=== PATIENT | male | born 1940 | race Caucasian/White ===

== ENCOUNTER 2018-09-10 22:17 | Inpatient (IN) | payer MEDICARE, BC ==
[2018-09-11] MEDS ORDERED: Ondansetron ODT 4 MG TAB SL PRN (01:44)
[2018-09-11] MEDS ORDERED: Ondansetron PF 4 MG/2 ML Vial IVP PRN (01:44)
[2018-09-11] MEDS ORDERED: Acetaminophen 325 MG TAB PO PRN (01:44)
[2018-09-11] MEDS: Sodium Chloride 0.9% 1,000 ML IV SCH ×2 (02:08→09:25)
[2018-09-11 02:32] VITALS: BMI 40.8
[2018-09-11] MEDS ORDERED: Calcium Carbonate 500 MG ChewTAB PO PRN ×2 (02:47→12:30)
[2018-09-11] MEDS ORDERED: Senokot S 8.6-50 MG TAB PO PRN ×2 (02:47→12:30)
[2018-09-11] MEDS ORDERED: Bisacodyl 5 MG TAB PO PRN (02:47)
[2018-09-11 03:53] LABS: #Lymphocytes 1.2 thou/uL (1.20-3.40); #Monocytes 1.2 thou/uL (0.11-0.59); #Neutrophils 14.4 thou/uL (1.40-6.50); %Basophils 0.2 % (0.0-1.0); %Lymphocytes 6.9 % (21.0-51.0); %Monocytes 7.1 % (0.0-10.0); %Neutrophils 85.8 % (42.0-75.0); Hemoglobin 13.9 g/dL (14.0-18.0); Mean Corpuscular HGB CONC 33.8 g/dL (32.0-36.0); Mean Corpuscular Hemoglobin 29.3 pg (27.0-31.0); Mean Corpuscular Volume 86.7 fL (78.0-98.0); Mean Platelet Volume 7.5 fL (7.4-10.4); Platelet Count 138 thou/uL (130-400); RBC Distribution Width 12.1 % (11.5-14.5); Red Blood Cell (RBC) Count 4.76 mill/uL (4.70-6.10); White Blood Cell (WBC) Count 16.8 thou/uL (4.8-10.8)
[2018-09-11 04:15] LABS: Anion Gap 12 mmol/L (10-20); BUN (Urea Nitrogen) 17 mg/dL (8.4-25.7); Calc. Creatinine Clearance 147 mL/min (70-130); Calcium 8.6 mg/dL (7.8-10.44); Carbon Dioxide 21 mmol/L (23-31); Chloride 106 mmol/L (98-107); Estimated GFR-MDRD Greater than 90; Glucose 145 mg/dL (83-110); Potassium 3.8 mmol/L (3.5-5.1); Sodium 135 mmol/L (136-145)
--- NOTE | 2018-09-11 08:32 | HP ---
CHIEF COMPLAINT: Burning with urination and increase in frequency. HISTORY OF PRESENT ILLNESS: This is a 78-year-old male with past medical history of atrial fibrillation, hyperlipidemia, who is presenting to our hospital with a chief complaint of dysuria, hesitancy, and increase in frequency, which started on the day prior to the hospital stay. Per the patient, he has been having some discomfort with urination, and now, he has noted that he goes to bathroom a lot more often and he is also having some suprapubic pain, which started the day prior to the admission. The patient stated that he went to [facility] and was admitted at [facility] and they found that he has infection in the urine. Therefore, he has been transferred to our hospital to be further evaluated and to be treated. At this point, the patient endorses some mild discomfort with urination. The patient stated that the pain that he is experiencing is about 2/10, and he is also having some increased frequency with urination. Otherwise, the patient denies any fever, chills, nausea, vomiting, headaches, dizziness, chest pain, palpitations, hematuria, hematochezia, or melena. REVIEW OF SYSTEMS: Positive for dysuria, increasing frequency with urination and suprapubic pain. Otherwise as documented in the HPI. All other system has been reviewed and are negative. PAST MEDICAL HISTORY: The patient had prostatitis, AFib, hyperlipidemia. FAMILY HISTORY: Reviewed and noncontributory to this visit. PAST SURGICAL HISTORY: Ablation and back surgery. PSYCHIATRIC HISTORY: No previous psych history. SOCIAL HISTORY: The patient drinks every day and the patient denies any illicit drug use, and the patient denies any smoking history. ALLERGIES: NO KNOWN DRUG ALLERGIES. CURRENT MEDICATIONS: The patient takes atorvastatin 40 mg and aspirin 81 mg. PHYSICAL EXAMINATION: VITAL SIGNS: The patient's blood pressure is 141/79, pulse of 80, respiratory rate of 23, temperature is 101.0. GENERAL: The patient is alert, awake, and oriented x3, not in acute distress. The patient is lying in bed comfortably. The patient is able to speak to me in full sentences. HEENT: Normocephalic, atraumatic. Pupils are equally round and reactive to light. Extraocular movements are intact. No scleral icterus. No conjunctival pallor. Mouth, mucous membranes are moist. NECK: Trachea is midline. Full range of motion. No JVD. Supple. LUNGS: Clear to auscultation bilaterally. No wheezing, no rales, no rhonchi appreciated. CARDIAC: Positive S1 and S2. Regular rate and rhythm. No murmurs, no gallops, no rubs appreciated. ABDOMEN: Soft, nontender, and nondistended. Positive bowel sounds in all quadrants. EXTREMITIES: 5/5 upper extremity strength, 5/5 lower extremity strength. Good pulses bilaterally of the upper and lower extremities. No edema noted. NEUROLOGIC: Cranial nerves 2 through 12 grossly intact. No neurologic deficits noted. SKIN: Warm, dry, and intact. LABORATORY DATA: WBC is 16.8, hemoglobin is 13.9, hematocrit is 41.3, platelet is 138. Sodium is 135, potassium is 3.8, chloride is 106, carbon dioxide of 21, anion gap of 12, BUN is 17, creatinine is 0.77, glucose is 145. Urinalysis that was done at [facility] was positive for UTI. ASSESSMENT AND PLAN: This is a 78-year-old male being admitted from [facility] ED for, 1. Pyelonephritis. At this point, the patient has been started on antibiotics. We are going to continue the patient on antibiotics. We are going to continue IV fluids. We have admitted the patient to medical floor. We will continue to monitor the patient. We will give p.r.n. pain medications and medications for fever. We will follow up on urine cultures so that we can tailor the antibiotics based on the culture and sensitivity. 2. Hyperlipidemia. We will continue the patient on his home medications. 3. History of atrial fibrillation. Currently, the patient is on aspirin 81 mg. The patient is not on full anticoagulation. 4. Deep vein thrombosis/gastrointestinal prophylaxis. Job ID: [id number]
[2018-09-11] MEDS: Famotidine 20 MG TAB PO SCH ×2 (09:25→19:51)
[2018-09-11] MEDS: Famotidine/PF 20 mg/2ml Vial SLOW IVP SCH ×2 (09:30→20:09)
[2018-09-11] MEDS ORDERED: Sodium Chloride 0.65% Nasal 44 ML BOT EA NARE PRN (12:30)
[2018-09-11] MEDS ORDERED: Diabetic Tussin 200 MG/10 ML UDCUP PO PRN (12:30)
[2018-09-11] MEDS ORDERED: Nitroglycerin 0.4 MG TAB (25 Tab Bottle) SL PRN (12:30)
[2018-09-11] MEDS ORDERED: Cepastat Lozenges 1 LOZ PO PRN (12:30)
[2018-09-11] MEDS: Lactated Ringer's 1,000 ML IV SCH (13:17)
--- NOTE | 2018-09-11 13:44 | PDOC.PN ---
- Subjective Encounter Start Date: 09/11/18 Encounter Start Time: 07:00 Subjective: mild suprapubic pain, still has burning urination but better -: no nausea -: still has freq of urination but better - Objective Resuscitation Status - Order Detail: 09/11/18 02:47 Resuscitation Status Routine Resuscitation Status: FULL: Full Resuscitation MAR Reviewed: Yes Vital Signs & Weight: Vital Signs (12 hours) Temp Pulse Resp BP Pulse Ox 09/11/18 11:42 98.2 F 53 L 18 132/72 98 09/11/18 09:37 99 09/11/18 09:31 63 09/11/18 08:00 98.2 F 53 L 18 133/81 99 09/11/18 01:55 94 L 09/11/18 01:54 98.1 F 68 20 128/65 94 L Weight Weight 284 lb 6.341 oz I&O: 09/10/18 09/11/18 09/12/18 06:59 06:59 06:59 Intake Total 975 Output Total 350 Balance 625 Result Diagrams: 09/11/18 03:30 09/11/18 03:30 Phys Exam - Physical Examination HEENT: PERRLA, moist MMs Neck: no JVD, supple Respiratory: no wheezing, no rales Cardiovascular: RRR, no significant murmur Gastrointestinal: soft, no distention, positive bowel sounds mild tenderness in suprapubic area Musculoskeletal: no edema, pulses present Neurological: non-focal, moves all 4 limbs Psychiatric: normal affect, A&O x 3 Dx/Plan (1) Sepsis Code(s): A41.9 - SEPSIS, UNSPECIFIED ORGANISM Status: Acute Qualifiers: Sepsis type: sepsis due to unspecified organism Qualified Code(s): A41.9 - Sepsis, unspecified organism (2) UTI (urinary tract infection) Status: Acute Qualifiers: Urinary tract infection type: acute cystitis Hematuria presence: without hematuria Qualified Code(s): N30.00 - Acute cystitis without hematuria (3) Obesity Code(s): E66.9 - OBESITY, UNSPECIFIED Status: Chronic (4) Dyslipidemia Code(s): E78.5 - HYPERLIPIDEMIA, UNSPECIFIED Status: Chronic - Plan is on ceftriaxone -: iv hydration -: ct stone protocol to r/o obstruction -: has prior h/o prostatitis years ago -: to amb as tolerated * . Review of Systems - Medications/Allergies Allergies/Adverse Reactions: Allergies Allergy/AdvReac Type Severity Reaction Status Date / Time No Known Allergies Allergy Unverified 09/11/18 01:44 Medications: Current Medications Acetaminophen (Tylenol) 1,000 mg PO Q6H PRN PRN Reason: Mild Pain (1-3) Bisacodyl (Dulcolax) 10 mg PO DAILYPRN PRN PRN Reason: Constipation Calcium Carbonate (Tums) 1,000 mg PO Q4H PRN PRN Reason: Heartburn or Indigestion Famotidine (Pepcid) 20 mg SLOW IVP Q12HR [facility] Last Admin: 09/11/18 09:30 Dose: Not Given Famotidine (Pepcid) 20 mg PO BID [facility] Last Admin: 09/11/18 09:25 Dose: 20 mg Guaifenesin (Robitussin Sf) 200 mg PO Q4H PRN PRN Reason: Cough Ceftriaxone Sodium 2 gm/ (Sodium Chloride) 100 mls @ 200 mls/hr IVPB Q24HR [facility] Lactated Ringer's (Lactated Ringer's) 1,000 mls @ 75 mls/hr IV .[id number] [facility] Last Admin: 09/11/18 13:17 Dose: 1,000 mls Miscellaneous Medication (Pharmacy To Dose) 1 each IVPB PRN PRN PRN Reason: Pharmacy to dose Nitroglycerin (Nitrostat) 0.4 mg SL Q5MIN PRN PRN Reason: Chest Pain Senna/Docusate Sodium (Senokot S) 2 tab PO BID PRN PRN Reason: Constipation Sodium Chloride (Flush - Normal Saline) 10 ml IVF Q12HR [facility] Last Admin: 09/11/18 09:30 Dose: Not Given Sodium Chloride (Flush - Normal Saline) 10 ml IVF PRN PRN PRN Reason: Saline Flush Sodium Chloride ([place] Nasal [place] 0.65%) 0 ml EA NARE QIDPRN PRN PRN Reason: Nasal Congestion Throat Lozenges (Cepastat Lozenges) 1 sirena PO Q2H PRN PRN Reason: Sore Throat
--- NOTE | 2018-09-11 14:43 | CT ---
CT ABDOMEN AND PELVIS NONCONTRAST: History: Obstructive uropathy. Sepsis. UTI. FINDINGS: No comparison. Each renal collecting system, ureter, and urinary bladder are decompressed. A 0.4 cm calculus is evid ent within the nondilated sierra at the inferior pole left kidney. Lack of contrast limits evaluation for other abnormalities. Mild atelectasis at the lung bases. Cysts within the lateral segment left liver lobe. Exophytic cyst projects laterally from the left kidney. Nonspecific stranding within the perirenal fat bilaterally. Calcification is in the arterial structur es. Abdominal fat protrudes into the left inguinal canal. IMPRESSION: 1. Nonobstructing 4 mm left renal calculus. 2. Left inguinal hernia contains only fat. 3. Atherosclerosis. POS: ANCELMO
[2018-09-11] MEDS: Acetaminophen 500 MG TAB PO PRN (15:57)
[2018-09-11] MEDS: cefTRIAXone\\ROCEPHIN 2 GM in Sodium Chloride 0.9% 100 ML IVPB SCH (19:51)
[2018-09-11] MEDS ORDERED: Tamsulosin HCl 0.4 MG CAP PO SCH (21:00)
[2018-09-12] MEDS: Lactated Ringer's 1,000 ML IV SCH ×2 (05:23→16:57)
[2018-09-12 08:09] LABS: #Eosinphils 0.1 thou/uL (0.0-0.7); #Lymphocytes 1.4 thou/uL (1.20-3.40); #Monocytes 0.9 thou/uL (0.11-0.59); #Neutrophils 10.1 thou/uL (1.40-6.50); %Basophils 0.3 % (0.0-1.0); %Eosinophils 0.8 % (0.0-10.0); %Lymphocytes 10.8 % (21.0-51.0); Hemoglobin 13.7 g/dL (14.0-18.0); Mean Corpuscular HGB CONC 32.4 g/dL (32.0-36.0); Mean Corpuscular Hemoglobin 28.7 pg (27.0-31.0); Mean Corpuscular Volume 88.5 fL (78.0-98.0); Mean Platelet Volume 8.3 fL (7.4-10.4); Platelet Count 136 thou/uL (130-400); RBC Distribution Width 12.2 % (11.5-14.5); Red Blood Cell (RBC) Count 4.77 mill/uL (4.70-6.10); White Blood Cell (WBC) Count 12.5 thou/uL (4.8-10.8)
[2018-09-12 08:23] LABS: Anion Gap 11 mmol/L (10-20); BUN (Urea Nitrogen) 16 mg/dL (8.4-25.7); Calc. Creatinine Clearance 138 mL/min (70-130); Calcium 8.6 mg/dL (7.8-10.44); Carbon Dioxide 24 mmol/L (23-31); Chloride 105 mmol/L (98-107); Estimated GFR-MDRD Greater than 90; Glucose 112 mg/dL (83-110); Potassium 3.8 mmol/L (3.5-5.1); Sodium 136 mmol/L (136-145)
[2018-09-12] MEDS: Famotidine/PF 20 mg/2ml Vial SLOW IVP SCH (08:25)
[2018-09-12] MEDS: Famotidine 20 MG TAB PO SCH ×2 (08:28→19:51)
--- NOTE | 2018-09-12 10:03 | PDOC.PN ---
- Subjective Encounter Start Date: 09/12/18 Encounter Start Time: 07:00 Subjective: still has freq and urgency with burning sensation on passing urine -: no fever or chills now -: is amb in room - Objective Resuscitation Status - Order Detail: 09/11/18 02:47 Resuscitation Status Routine Resuscitation Status: FULL: Full Resuscitation MAR Reviewed: Yes Vital Signs & Weight: Vital Signs (12 hours) Temp Pulse Resp BP BP Pulse Ox 09/12/18 07:53 97.4 F L 64 18 153/78 H 92 L 09/12/18 04:35 98.1 F 59 L 16 144/68 H 99 Weight Weight 284 lb 6.341 oz I&O: 09/11/18 09/12/18 09/13/18 06:59 06:59 06:59 Intake Total 975 1800 Output Total 350 395 Balance 625 1405 Result Diagrams: 09/12/18 05:43 09/12/18 05:43 Phys Exam - Physical Examination HEENT: PERRLA, moist MMs Neck: no JVD, supple Respiratory: no wheezing, no rales Cardiovascular: RRR, no significant murmur Gastrointestinal: soft, non-tender, positive bowel sounds Musculoskeletal: no edema, pulses present Neurological: non-focal, moves all 4 limbs Psychiatric: normal affect, A&O x 3 Dx/Plan (1) Sepsis Code(s): A41.9 - SEPSIS, UNSPECIFIED ORGANISM Status: Acute Qualifiers: Sepsis type: sepsis due to unspecified organism Qualified Code(s): A41.9 - Sepsis, unspecified organism (2) UTI (urinary tract infection) Status: Acute Qualifiers: Urinary tract infection type: acute cystitis Hematuria presence: without hematuria Qualified Code(s): N30.00 - Acute cystitis without hematuria (3) Obesity Code(s): E66.9 - OBESITY, UNSPECIFIED Status: Chronic (4) Dyslipidemia Code(s): E78.5 - HYPERLIPIDEMIA, UNSPECIFIED Status: Chronic - Plan obstr uropathy with b/l pyelonephritis -: elevated psa at 14 -: increase flomax to bid, ditropan and azo -: will consult urology -: continue ceftriaxone, asp, lipitor, will add small dose lopressor * . Review of Systems - Medications/Allergies Allergies/Adverse Reactions: Allergies Allergy/AdvReac Type Severity Reaction Status Date / Time No Known Allergies Allergy Unverified 09/11/18 01:44 Medications: Current Medications Acetaminophen (Tylenol) 1,000 mg PO Q6H PRN PRN Reason: Mild Pain (1-3) Last Admin: 09/11/18 15:57 Dose: 1,000 mg Bisacodyl (Dulcolax) 10 mg PO DAILYPRN PRN PRN Reason: Constipation Calcium Carbonate (Tums) 1,000 mg PO Q4H PRN PRN Reason: Heartburn or Indigestion Famotidine (Pepcid) 20 mg SLOW IVP Q12HR [facility] Last Admin: 09/12/18 08:25 Dose: Not Given Famotidine (Pepcid) 20 mg PO BID [facility] Last Admin: 09/12/18 08:28 Dose: 20 mg Guaifenesin (Robitussin Sf) 200 mg PO Q4H PRN PRN Reason: Cough Ceftriaxone Sodium 2 gm/ (Sodium Chloride) 100 mls @ 200 mls/hr IVPB Q24HR [facility] Last Admin: 09/11/18 19:51 Dose: 100 mls Lactated Ringer's (Lactated Ringer's) 1,000 mls @ 75 mls/hr IV .[id number] [facility] Last Admin: 09/12/18 05:23 Dose: 1,000 mls Miscellaneous Medication (Pharmacy To Dose) 1 each IVPB PRN PRN PRN Reason: Pharmacy to dose Nitroglycerin (Nitrostat) 0.4 mg SL Q5MIN PRN PRN Reason: Chest Pain Oxybutynin Chloride (Ditropan) 5 mg PO DAILY [facility] Phenazopyridine HCl (Azo Standard) 97.5 mg PO [facility] Senna/Docusate Sodium (Senokot S) 2 tab PO BID PRN PRN Reason: Constipation Sodium Chloride (Flush - Normal Saline) 10 ml IVF Q12HR [facility] Last Admin: 09/12/18 08:25 Dose: Not Given Sodium Chloride (Flush - Normal Saline) 10 ml IVF PRN PRN PRN Reason: Saline Flush Sodium Chloride ([place] Nasal [place] 0.65%) 0 ml EA NARE QIDPRN PRN PRN Reason: Nasal Congestion Tamsulosin HCl (Flomax) 0.4 mg PO BID [facility] Throat Lozenges (Cepastat Lozenges) 1 sirena PO Q2H PRN PRN Reason: Sore Throat
[2018-09-12] MEDS: Phenazopyridine HCl 97.5 MG TABLET PO SCH ×2 (12:49→17:02)
[2018-09-12] MEDS: Acetaminophen 500 MG TAB PO PRN (17:02)
[2018-09-12] MEDS: Atorvastatin Calcium 40 MG TAB PO SCH (19:51)
[2018-09-12] MEDS: Tamsulosin HCl 0.4 MG CAP PO SCH (19:51)
[2018-09-12] MEDS: cefTRIAXone\\ROCEPHIN 2 GM in Sodium Chloride 0.9% 100 ML IVPB SCH (19:52)
[2018-09-13] MEDS: Lactated Ringer's 1,000 ML IV SCH ×2 (06:23→11:16)
[2018-09-13 08:04] LABS: #Lymphocytes 1.1 thou/uL (1.20-3.40); #Monocytes 0.6 thou/uL (0.11-0.59); #Neutrophils 7.9 thou/uL (1.40-6.50); %Eosinophils 0.3 % (0.0-10.0); %Lymphocytes 11.1 % (21.0-51.0); %Monocytes 5.9 % (0.0-10.0); %Neutrophils 82.6 % (42.0-75.0); Hemoglobin 14.2 g/dL (14.0-18.0); Mean Corpuscular HGB CONC 33.4 g/dL (32.0-36.0); Mean Corpuscular Hemoglobin 29.2 pg (27.0-31.0); Mean Corpuscular Volume 87.4 fL (78.0-98.0); Mean Platelet Volume 7.7 fL (7.4-10.4); Platelet Count 141 thou/uL (130-400); RBC Distribution Width 12.1 % (11.5-14.5); Red Blood Cell (RBC) Count 4.85 mill/uL (4.70-6.10); White Blood Cell (WBC) Count 9.6 thou/uL (4.8-10.8)
[2018-09-13] MEDS: Phenazopyridine HCl 97.5 MG TABLET PO SCH ×3 (08:13→17:42)
[2018-09-13] MEDS: Acetaminophen 500 MG TAB PO PRN ×2 (08:13→19:58)
[2018-09-13] MEDS: Tamsulosin HCl 0.4 MG CAP PO SCH ×2 (08:13→19:57)
[2018-09-13] MEDS: Famotidine 20 MG TAB PO SCH ×2 (08:13→19:58)
[2018-09-13 08:20] LABS: Anion Gap 11 mmol/L (10-20); BUN (Urea Nitrogen) 12 mg/dL (8.4-25.7); Calc. Creatinine Clearance 130 mL/min (70-130); Calcium 8.6 mg/dL (7.8-10.44); Carbon Dioxide 22 mmol/L (23-31); Chloride 104 mmol/L (98-107); Estimated GFR-MDRD 85; Glucose 121 mg/dL (83-110); Potassium 3.9 mmol/L (3.5-5.1); Sodium 133 mmol/L (136-145)
[2018-09-13] MEDS ORDERED: Oxybutynin 5 MG TAB PO SCH (09:00)
--- NOTE | 2018-09-13 11:53 | PDOC.PN ---
- Subjective Encounter Start Date: 09/13/18 Encounter Start Time: 08:15 Subjective: had fever early this am, is sitting in chair -: had waller placed yesterday evening -: he feels better after waller - Objective Resuscitation Status - Order Detail: 09/11/18 02:47 Resuscitation Status Routine Resuscitation Status: FULL: Full Resuscitation MAR Reviewed: Yes Vital Signs & Weight: Vital Signs (12 hours) Temp Pulse Resp BP BP Pulse Ox 09/13/18 11:19 97.7 F 57 L 17 116/73 09/13/18 08:18 95 09/13/18 07:03 100.7 F H 57 L 19 130/60 95 Weight Weight 284 lb 6.341 oz I&O: 09/12/18 09/13/18 09/14/18 06:59 06:59 06:59 Intake Total 1800 Output Total 395 4000 Balance 1405 -4000 Result Diagrams: 09/13/18 07:28 09/13/18 07:28 Phys Exam - Physical Examination HEENT: PERRLA, moist MMs Neck: no JVD, supple Respiratory: no wheezing, no rales Cardiovascular: RRR, no significant murmur Gastrointestinal: soft, non-tender, positive bowel sounds Musculoskeletal: no edema, pulses present Neurological: non-focal, moves all 4 limbs Psychiatric: normal affect, A&O x 3 Dx/Plan (1) Sepsis Code(s): A41.9 - SEPSIS, UNSPECIFIED ORGANISM Status: Acute Qualifiers: Sepsis type: sepsis due to unspecified organism Qualified Code(s): A41.9 - Sepsis, unspecified organism (2) UTI (urinary tract infection) Status: Acute Qualifiers: Urinary tract infection type: acute cystitis Hematuria presence: without hematuria Qualified Code(s): N30.00 - Acute cystitis without hematuria (3) Obesity Code(s): E66.9 - OBESITY, UNSPECIFIED Status: Chronic (4) Dyslipidemia Code(s): E78.5 - HYPERLIPIDEMIA, UNSPECIFIED Status: Chronic (5) Obstructive uropathy Code(s): N13.9 - OBSTRUCTIVE AND REFLUX UROPATHY, UNSPECIFIED Status: Acute Comment: elevated psa at 14 - Plan has indwelling waller now -: on ceftriaxone, sensitive to cultures taken -: flomax bid, azo -: continue asp, lipitor, to amb as tolerated -: dc plan when he is afebrile * . Review of Systems - Medications/Allergies Allergies/Adverse Reactions: Allergies Allergy/AdvReac Type Severity Reaction Status Date / Time No Known Allergies Allergy Unverified 09/11/18 01:44 Medications: Current Medications Acetaminophen (Tylenol) 1,000 mg PO Q6H PRN PRN Reason: Mild Pain (1-3) Last Admin: 09/13/18 08:13 Dose: 1,000 mg Aspirin (Aspirin Chewable) 81 mg PO DAILY [facility] Last Admin: 09/13/18 08:13 Dose: 81 mg Atorvastatin Calcium (Lipitor) 40 mg PO HS [facility] Last Admin: 09/12/18 19:51 Dose: 40 mg Bisacodyl (Dulcolax) 10 mg PO DAILYPRN PRN PRN Reason: Constipation Calcium Carbonate (Tums) 1,000 mg PO Q4H PRN PRN Reason: Heartburn or Indigestion Famotidine (Pepcid) 20 mg PO BID [facility] Last Admin: 09/13/18 08:13 Dose: 20 mg Guaifenesin (Robitussin Sf) 200 mg PO Q4H PRN PRN Reason: Cough Ceftriaxone Sodium 2 gm/ (Sodium Chloride) 100 mls @ 200 mls/hr IVPB Q24HR [facility] Last Admin: 09/12/18 19:52 Dose: 100 mls Lactated Ringer's (Lactated Ringer's) 1,000 mls @ 75 mls/hr IV .[id number] [facility] Last Admin: 09/13/18 11:16 Dose: 1,000 mls Miscellaneous Medication (Pharmacy To Dose) 1 each IVPB PRN PRN PRN Reason: Pharmacy to dose Nitroglycerin (Nitrostat) 0.4 mg SL Q5MIN PRN PRN Reason: Chest Pain Phenazopyridine HCl (Azo Standard) 97.5 mg PO PC [facility] Last Admin: 09/13/18 08:13 Dose: 97.5 mg Senna/Docusate Sodium (Senokot S) 2 tab PO BID PRN PRN Reason: Constipation Sodium Chloride (Flush - Normal Saline) 10 ml IVF Q12HR [facility] Last Admin: 09/13/18 08:14 Dose: Not Given Sodium Chloride (Flush - Normal Saline) 10 ml IVF PRN PRN PRN Reason: Saline Flush Sodium Chloride ([place] Nasal [place] 0.65%) 0 ml EA NARE QIDPRN PRN PRN Reason: Nasal Congestion Tamsulosin HCl (Flomax) 0.4 mg PO BID [facility] Last Admin: 09/13/18 08:13 Dose: 0.4 mg Throat Lozenges (Cepastat Lozenges) 1 sirena PO Q2H PRN PRN Reason: Sore Throat
--- NOTE | 2018-09-13 15:24 | CON ---
DATE OF CONSULTATION: 09/12/2018 REASON FOR CONSULTATION: Consultation was requested for UTI, concern for pyelonephritis and elevated PSA. The patient was admitted with concerns for urinary tract infection and chills. He did not have fever, so I am not fully understanding the diagnosis of pyelonephritis with the need for admission as he was not previously on antibiotics prior to admission. He did not have gross hematuria. He did have burning, frequency, urgency, and worsening urinary symptoms over the past week or so. Normally, he has frequency every 2-3 hours and nocturia x0. He has worsening hesitancy, weakness , and incomplete emptying. Twenty-five years ago, he had prostatitis and was treated and had a urologist then, but he has not had problems with this or infections since. He does not take any prostate medications. He had no hematuria. No history of stones; however, there was concern for stone on recent CT. He was unaware of this. PAST MEDICAL HISTORY: Atrial fibrillation, hyperlipidemia, asbestosis. PAST SURGICAL HISTORY: Cardiac ablation and back surgery. MEDICATIONS: 1. Atorvastatin 40 mg. 2. Aspirin 81 mg. ALLERGIES: NONE. SOCIAL HISTORY: He has on average 2 drinks a day, sometimes more, sometimes not everyday. He does not smoke or use drugs. REVIEW OF SYSTEMS: Reveals some constipation recently, but he does work to stay regular and he had a bowel movement today. No diarrhea. No nausea or vomiting. He has had chills, but no fever. No chest pain. No shortness of breath. No cough. He does admit to Asbestosis but does not use anything for that as it is in early stages. He had a colonoscopy 15 years ago that showed polyps. He was screened for prostate cancer previously and his PSA approximately 5 years ago was 1.8. He has not had a biopsy of concern for cancer. FAMILY HISTORY: Significant for dad at 93 with CVAs, but he did have a history of prostate cancer that was noted when he had a PSA of 42 and was on Lupron, but did not of this, but rather old age and multi-organ failure. Mother at 86. She had female cancer in 1956 and survived that and colon cancer. She thereafter not of cancer. PHYSICAL EXAMINATION: GENERAL: He is lying comfortably in the bed. Alert, oriented, and jovial. VITAL SIGNS: T-max 98.1, saturating well on room air, blood pressure 153/78, heart rate 64, respiratory rate 18. Urine output has been listed as urinal. I had already asked him to do a bladder scan, and if it was greater than 200mL to call me. They did and it was, so I asked the nurse to place an 18-Urdu coude. She did without difficulty and immediately got back more than a liter, and it was still draining when I saw him with clear urine. HEART: Heart rate was fairly regular without any obvious murmurs, gallops, or rubs. LUNGS: Clear to auscultation bilaterally. ABDOMEN: Rotund, but soft, nondistended, nontender. : Testes were descended bilaterally with the right atrophic, which is chronic after he got injury when he was young. 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 Phallus was uncircumcised with the foreskin back, but I reduced it. The Thompson catheter again draining yellow to white urine. EXTREMITIES: No lower extremity edema. HEENT: No scleral icterus or JVD. RECTAL: Digital rectal exam revealed enlarged prostate with right greater than left, but no nodules nor induration and just consistent with BPH. LABORATORY DATA: CBC is within normal limits. BUN and creatinine are 16 and 0.82. PSA 14.59, which does not concern me in the least as he has both infection and obvious retention, so I did not to check PSAs during such episodes. Urinalysis from 09/10/2018, shows too numerous to count rbc's, too numerous to count wbc's, 3+ bacteria, and 0-3 squamous cells. Culture already growing E coli sensitive to most organisms or most antibiotics. CT scan without contrast was revealed and I will further dictate that on the addendum. ASSESSMENT AND PLAN: We have a 78-year-old male with presumed longstanding BPH that led to incomplete emptying and urinary tract infection, now with prostatitis and retention with an indwelling and on antibiotics. I would continue antibiotics for a total of 4 weeks based on the elevated PSA, and then we can repeat that as an outpatient at a later time. I would continue tamsulosin twice a day. Hold off on finasteride for now, but ultimately it is maybe something that is required. His bladder will need rest from overdistention and he will likely need to be discharged with the Thompson catheter and follow up for a voiding trial. Job ID: [id number] MTDD
[2018-09-13] MEDS: Atorvastatin Calcium 40 MG TAB PO SCH (19:58)
[2018-09-13] MEDS: cefTRIAXone\\ROCEPHIN 2 GM in Sodium Chloride 0.9% 100 ML IVPB SCH (19:58)
--- NOTE | 2018-09-14 01:40 | PRG ---
DATE OF SERVICE: 09/13/2018 SUBJECTIVE: The patient did well overnight. He has no complaints. The catheter has been draining fine. OBJECTIVE: He is comfortably sitting in the bed. His catheter is draining yellow urine. His vitals have been stable with T-max now 100.7, but has come down to 99. Blood pressure 130/60, heart rate 60s, and sat'ing 95% on room air. LABORATORY DATA: White count normalized and his creatinine still good. E coli with urine culture and sensitive to everything but amoxicillin. ASSESSMENT AND PLAN: A 78-year-old male with BPH, UTI, prostatitis and retention with catheter draining now well on antibiotic therapy. He can go home on Cipro for four weeks and instructed him on how to take care of the catheter and remove it. He will do this on the day he follows up next week in my office for a voiding trial. I reviewed all of this with him and his family. I've left scripts for both Cipro and tamsulosin. All questions were answered. Job ID: [id number] [facility]
[2018-09-14 05:39] LABS: #Lymphocytes 0.9 thou/uL (1.20-3.40); #Monocytes 0.6 thou/uL (0.11-0.59); #Neutrophils 3.9 thou/uL (1.40-6.50); %Basophils 0.2 % (0.0-1.0); %Eosinophils 0.7 % (0.0-10.0); %Lymphocytes 16.3 % (21.0-51.0); %Monocytes 11.2 % (0.0-10.0); %Neutrophils 71.7 % (42.0-75.0); Hemoglobin 12.4 g/dL (14.0-18.0); Mean Corpuscular HGB CONC 33.5 g/dL (32.0-36.0); Mean Corpuscular Hemoglobin 29.2 pg (27.0-31.0); Mean Platelet Volume 7.2 fL (7.4-10.4); Platelet Count 122 thou/uL (130-400); RBC Distribution Width 12.1 % (11.5-14.5); Red Blood Cell (RBC) Count 4.23 mill/uL (4.70-6.10); White Blood Cell (WBC) Count 5.5 thou/uL (4.8-10.8)
[2018-09-14 06:00] LABS: Anion Gap 11 mmol/L (10-20); BUN (Urea Nitrogen) 13 mg/dL (8.4-25.7); Calc. Creatinine Clearance 139 mL/min (70-130); Calcium 8.4 mg/dL (7.8-10.44); Carbon Dioxide 24 mmol/L (23-31); Chloride 106 mmol/L (98-107); Estimated GFR-MDRD Greater than 90; Glucose 117 mg/dL (83-110); Potassium 3.7 mmol/L (3.5-5.1); Sodium 137 mmol/L (136-145)
[2018-09-14] MEDS: Phenazopyridine HCl 97.5 MG TABLET PO SCH (09:30)
[2018-09-14] MEDS: Tamsulosin HCl 0.4 MG CAP PO SCH (09:30)
[2018-09-14] MEDS: Famotidine 20 MG TAB PO SCH (09:30)
[2018-09-14 11:21] VITALS: BP 139/67; TEMP 98.5
--- NOTE | 2018-09-15 12:17 | DIS ---
DATE OF ADMISSION: 09/10/2018 DATE OF DISCHARGE: 09/14/2018 DISCHARGE DISPOSITION: To home. PRIMARY DISCHARGE DIAGNOSES: Obstructive uropathy with urinary tract infection, sepsis, and bilateral pyelonephritis, elevated PSA of 14, for further evaluation. SECONDARY DISCHARGE DIAGNOSES: Dyslipidemia, obesity. PROCEDURES DONE DURING HOSPITALIZATION: Abdominal pelvic CAT scan done showed nonobstructing 4 mm left renal calculus, left inguinal hernia containing only fat, atherosclerosis, nonspecific stranding within the perirenal fat bilaterally. Urine culture grew E coli, 10,000 to 25,000 colony-forming units per mL, resistant to ampicillin, sulbactam, and amikacin, but sensitive to all other antibiotics. Blood cultures x2, no growth. Had a white count of 20 on the day of admission with discharge numbers of 5.5, H and H on the day of discharge 12 and 36, platelet count 122. PSA 14.5. BUN and creatinine 13 and 0.7 on the day of discharge. UA showed large leukocyte esterase, greater than 50 wbc's, and 3+ bacteria, also had positive nitrite. INPATIENT CONSULT: Janice Gipson MD for Urology. DISCHARGE MEDICATIONS: 1. Aspirin 81 mg p.o. daily. 2. Lipitor 40 mg p.o. at bedtime. 3. Ciprofloxacin 500 mg p.o. twice daily for a period of 4 weeks. 4. Flomax 0.4 mg p.o. twice daily. ALLERGIES: NO KNOWN DRUG ALLERGIES. DISCHARGE PLAN: The patient to follow up with Dr. Gipson in 2 weeks for further workup for obstructive uropathy. BRIEF COURSE DURING HOSPITALIZATION: The patient initially got admitted on the with complaints of fever, chills, burning urination and frequency. The patient was diagnosed with sepsis with UTI. He had elevated white count of 20,000. He also had bandemia. His CT scan done showed findings suggestive of pyelonephritis. No stones were seen. His PSA was 14. He was evaluated by Dr. Janice Gipson for Urology. The patient continued to have burning urination with increased frequency. He had placement of indwelling Thompson catheter for the same as he did not get well with 3 days of antibiotics and adequate fluid resuscitation. The patient has been given instructions how to bladder train and remove his Thompson catheter by Dr. Gipson in a week or so. He needs followup with Dr. Gipson, Urology for further workup for his elevated PSA. He has had prior history of prostatitis in the past, but was more than 10 or 15 years back. He is otherwise hemodynamically stable. His cultures came back positive for E coli, sensitive to quinolones. He needs to continue antibiotics for a total duration of 4 weeks per Urology advice. Please see a [id number] documentation for the day of discharge on [facility]. Job ID: [id number]
== END 2018-09-14 12:27 | disposition home or self-care (01) | DRG 872 ==
LOC: ERS 22:17 → T4-A 22:37
PROVIDERS: ADMIT Internal Medicine; ATTEND Internal Medicine
DX: A41.9 Sepsis, unspecified organism (principal); N30.00 Acute cystitis without hematuria; I48.91 Unspecified atrial fibrillation; E78.5 Hyperlipidemia, unspecified; N41.9 Inflammatory disease of prostate, unspecified; E66.9 Obesity, unspecified; Z68.38 Body mass index [BMI] 38.0-38.9, adult; N13.9 Obstructive and reflux uropathy, unspecified; B96.20 Unspecified Escherichia coli [E. coli] as the cause of diseases classified elsewhere; Z79.82 Long term (current) use of aspirin
CPT/HCPCS: 36415; 74176; 80048; 84153; 85025; 87040; 99284; J0696; J7050; J7120

== ENCOUNTER 2018-11-11 07:22 | Outpatient (CLI) | payer MEDICARE, BC ==
[2018-11-11 13:57] LABS: Hemoglobin 14.6 g/dL (14.0-18.0); Mean Corpuscular HGB CONC 32.4 g/dL (32.0-36.0); Mean Corpuscular Hemoglobin 28.8 pg (27.0-31.0); Mean Corpuscular Volume 88.9 fL (78.0-98.0); Mean Platelet Volume 8.1 fL (7.4-10.4); Platelet Count 145 thou/uL (130-400); RBC Distribution Width 12.4 % (11.5-14.5); Red Blood Cell (RBC) Count 5.05 mill/uL (4.70-6.10)
[2018-11-11 14:14] LABS: Bilirubin Negative (Negative); Blood, Urine Negative (Negative); Clarity CLEAR (Clear); Glucose, Urine (Dipstick) Negative (Negative); Leukocyte Negative (Negative); Nitrite Negative (Negative); Protein, Urine (Dipstick) Negative (Neg-Trace); Urobilinogen 0.2 mg/dL (0.2-1.0); pH, Urine 6.5 (5.0-9.0)
[2018-11-11 14:15] LABS: Anion Gap 13 mmol/L (10-20); BUN (Urea Nitrogen) 17 mg/dL (8.4-25.7); Calc. Creatinine Clearance 0 mL/min (70-130); Calcium 9.6 mg/dL (7.8-10.44); Carbon Dioxide 22 mmol/L (23-31); Chloride 107 mmol/L (98-107); Estimated GFR-MDRD Greater than 90; Glucose 86 mg/dL (83-110); Potassium 4.3 mmol/L (3.5-5.1); Sodium 138 mmol/L (136-145)
[2018-11-11 14:19] LABS: Bacteria/HPF None Seen HPF (None Seen); Hyaline Casts/LPF 0-3 HYALINE CAST LPF (0-3 Hyaline); RBC/HPF 0-3 HPF (0-3); Squamous Epithelial None Seen HPF (0-3); WBC/HPF None Seen HPF (0-3)
== END 2018-11-11 07:23 | disposition home or self-care (01) ==
LOC: LABBT 07:22
PROVIDERS: ATTEND Urology
DX: Z01.818 Encounter for other preprocedural examination (principal); R33.9 Retention of urine, unspecified; N39.0 Urinary tract infection, site not specified; R35.1 Nocturia; R97.20 Elevated prostate specific antigen [PSA]; N40.0 Benign prostatic hyperplasia without lower urinary tract symptoms; N41.9 Inflammatory disease of prostate, unspecified; R39.12 Poor urinary stream
CPT/HCPCS: 80048; 81001; 85027; 87086; 93005; 93010

== ENCOUNTER 2018-11-18 10:17 | Day surgery (SDC) | payer MEDICARE, BC ==
[2018-11-11 13:14] VITALS: BMI 38.7
[2018-11-18] MEDS ORDERED: Furosemide 20 MG/2 ML VIAL ONE (10:28)
[2018-11-18] MEDS ORDERED: B & O ONE ×2 (10:28→12:33)
[2018-11-18] MEDS ORDERED: Levofloxacin 500 mg/D5W 100 ml Premix Bag ONE (10:38)
[2018-11-18] MEDS ORDERED: Fentanyl 100 MCG/2 ML VIAL ONE (10:52)
[2018-11-18] MEDS ORDERED: Dexamethasone 4 mg/ml Vial ONE (10:55)
[2018-11-18] MEDS ORDERED: PROPOFOL 200 MG/20 ML VIAL ONE (12:35)
[2018-11-18] MEDS ORDERED: Rocuronium Bromide 10 MG/ML (10ML VIAL) ONE (12:35)
[2018-11-18] MEDS ORDERED: Glycopyrrolate 0.2 MG/ML 5 ML SYRINGE ONE (12:35)
[2018-11-18] MEDS ORDERED: Lidocaine 1% PF 5 ML VIAL ONE (12:35)
[2018-11-18] MEDS ORDERED: Ondansetron PF 4 MG/2 ML Vial ONE (12:35)
--- NOTE | 2018-11-18 15:36 | OP ---
DATE OF PROCEDURE: 11/18/2018 PREOPERATIVE DIAGNOSIS: Benign prostatic hypertrophy. POSTOPERATIVE DIAGNOSIS: Benign prostatic hypertrophy. PROCEDURE PERFORMED: GreenLight laser vaporization of the prostate with enucleation of the middle lobe using 153,564 joules. ANESTHESIA: General with endotracheal tube. SPECIMENS: Prostate. COMPLICATIONS: None. DRAIN REMAINING: A 20-Upper Sorbian two-way. ESTIMATED BLOOD LOSS: Minimal. INDICATIONS FOR PROCEDURE: The patient is a 78-year-old male, who is followed in the office for BPH and elected to undergo GreenLight laser vaporization of the prostate. DESCRIPTION OF PROCEDURE: The patient was brought to the room by Anesthesia, laid on the table in supine position. After receiving general anesthetic, the legs were placed in lithotomy position and his perineum was prepped and draped in sterile fashion. Using a 22.5-Upper Sorbian cystoscope and a 30-degree lens, the urethra was traversed and the bladder was inspected. The ureteral orifices were identified and preserved throughout the case. A power level of 80 was used for the middle lobe enucleation that was intravesical. There was not a significant portion of that intravesical, so then it was switched to 180. Once I was in the prostatic urethra itself and these tubes were made small enough to be evacuated out. This was taken all the way down to the veru and very close to the capsule on the patient's right if there was a vein encountered. A small amount of coagulation was used for this portion, but it was still oozing at very low pressures. So, I completed the procedure and then turned my attention back to this area in an attempting getting into hemostatic, it was hemostatic as long as the bladder had any significant filling, but when it was empty, there was concern for bleeding. So, once I had known that the scope was removed and a good stream was noted when the scope put back in and there were no other concerns for hemostasis. I removed the scope, placed 20 catheter and blew the balloon up to 20 mL and held pressure for approximately 5 minutes. I irrigated the bladder during this time and it continued to be significantly clear. Then, I took the pressure off and continued to watch the drainage and it was clear. Then, I pushed the catheter back into the bladder and put the bladder balloon back down to 13 and it still remained clear at this time. So, at this point, the catheter was fixed to gravity and secured and the patient was awakened and transferred to the PACU in stable condition. Job ID: [id number]
== END 2018-11-18 15:10 | disposition home or self-care (01) ==
LOC: SDC 10:17
PROVIDERS: ATTEND Urology
PROC: 0VT08ZZ Resection of Prostate, Via Natural or Artificial Opening Endoscopic (ICD-10-PCS; principal; 2018-11-18)
DX: N40.1 Benign prostatic hyperplasia with lower urinary tract symptoms (principal); R33.8 Other retention of urine; R35.1 Nocturia; R39.12 Poor urinary stream; E78.00 Pure hypercholesterolemia, unspecified; Z79.82 Long term (current) use of aspirin; Z79.899 Other long term (current) drug therapy; Z88.5 Allergy status to narcotic agent
CPT/HCPCS: 88305; J1100; J1940; J1956; J3010

== ENCOUNTER 2020-04-19 14:14 | Inpatient (IN) | payer MEDICARE, BC, OTHER ==
[~2020-04-19 14:14] MED LIST: Dexamethasone 20 MG/5 ML VIAL ONE; EPHEDRINE 25 MG/5 ML SYRINGE ONE; Glycopyrrolate 0.2 MG/ML 5 ML SYRINGE ONE; Lidocaine 1% PF 5 ML VIAL ONE; Ondansetron PF 4 MG/2 ML Vial ONE; PROPOFOL 200 MG/20 ML VIAL ONE; Rocuronium Bromide 10 MG/ML (10ML VIAL) ONE
[2020-04-19] MEDS ORDERED: Gentamicin 80 MG/2 ML VIAL ONE (15:12)
[2020-04-19] MEDS ORDERED: Morphine 4 MG/ML VIAL ONE ×2 (15:13→16:06)
[2020-04-19] MEDS ORDERED: Lidocaine 2% Jelly 5 ML TUBE ONE (17:06)
[2020-04-19] MEDS ORDERED: Fentanyl 100 MCG/2 ML VIAL ONE ×2 (17:06→21:05)
[2020-04-19] MEDS ORDERED: Betamet Acet/Betamet Na Ph 30 MG/5 ML VIAL ONE (17:40)
[2020-04-19] MEDS ORDERED: Bacitracin Zinc Ointment 30 gm TUBE ONE (17:40)
[2020-04-19] MEDS ORDERED: Sodium Chloride 0.9% 60 ML ONE (17:40)
[2020-04-19] MEDS ORDERED: Bupivacaine PF 0.5% 30 ML VIAL ONE (17:40)
--- NOTE | 2020-04-19 20:26 | RAD ---
FINGERS LEFT HAND: 04/19/20 INDICATIONS: Intraoperative imaging during debridement of left thumb. FINDINGS/IMPRESSION: Four fluoroscopic images of the left thumb are presented. Mild degenerative change at the IP joints a nd at the carpometacarpal joint. Mild soft tissue swelling. No acute osseous abnormality identified. POS: AGW
[2020-04-19] MEDS ORDERED: Promethazine HCl 25 MG/ML VIAL IM PRN ×2 (20:52→20:56)
[2020-04-19] MEDS ORDERED: Promethazine HCl 25 MG/ML VIAL SLOW IVP PRN (20:52)
[2020-04-19] MEDS ORDERED: PACU-Morphine 4MG/ML VIAL SLOW IVP PRN (20:52)
[2020-04-19] MEDS ORDERED: Milk Of Magnesia 30 ML UDCUP PO PRN (20:56)
[2020-04-19] MEDS ORDERED: Ondansetron PF 4 MG/2 ML Vial IV PRN (20:56)
[2020-04-19] MEDS ORDERED: traMADol HCl 50 MG TAB PO PRN (20:56)
[2020-04-19] MEDS ORDERED: Acetaminophen 325 MG TAB PO PRN (20:56)
[2020-04-19] MEDS ORDERED: Morphine 4 MG/ML VIAL SLOW IVP PRN (20:56)
[2020-04-19] MEDS ORDERED: Acetaminophen/Codeine 30-300mg Tablet PO PRN (20:56)
[2020-04-19] MEDS ORDERED: Meperidine HCl/PF 25 MG/ML VIAL IM PRN (20:59)
[2020-04-19] MEDS ORDERED: Communication Order-Pharmacy FS SCH (21:00)
[2020-04-19] MEDS ORDERED: Vancomycin 1 GM in Premix Bag 1 BAG IVPB SCH ×2 (21:00→21:30)
[2020-04-19] MEDS ORDERED: TETANUS AND DIPHTHERIA TOX/PF 0.5 ML DISP.SYRIN IM SCH (21:00)
[2020-04-20] MEDS ORDERED: Vancomycin 1 GM in Premix Bag 1 BAG IVPB SCH (00:15)
[2020-04-20] MEDS: Aspirin 81 mg Enteric Coated Tablet PO SCH ×2 (00:39→08:18)
[2020-04-20 01:55] VITALS: BMI 35.7
[2020-04-20] MEDS: HYDROcodone/Acetaminophen 5/325 mg Tablet PO PRN ×3 (02:11→17:09)
--- NOTE | 2020-04-20 03:21 | OP ---
DATE OF PROCEDURE: 04/19/2020 PREOPERATIVE DIAGNOSES: 1. Left thumb open metacarpophalangeal dislocation. 2. Left thumb open sesamoid avulsion fracture. 3. Possible collateral ligament radial injury. 4. Possible digital nerve neurapraxia. POSTOPERATIVE DIAGNOSES: 1. Left thumb open metacarpophalangeal dislocation. 2. Left thumb open sesamoid avulsion fracture. 3. Possible collateral ligament radial injury. 4. Possible digital nerve neurapraxia. FINDINGS: 1. Open thumb metacarpal dislocation with minimal contamination. 2. Laceration, almost 50% of the collateral ligament radial. 3. Abductor pollicis tear. 4. 8 cm wound with minimal contamination. PROCEDURES PERFORMED: 1. C-arm supervision, [id number] modifier. 2. Wound debridement, left thumb, down to but not include the bone. 3. Wound closure 8 cm, left thumb. 4. Digital nerve neuroplasty x2, left thumb. 5. Debridement, material associated with open dislocation, left thumb. 6. Repair of volar plate, left thumb. 7. Repair of radial collateral ligament, left thumb. 8. Repair of abductor pollicis brevis tendon, left thumb. 9. Open treatment, left thumb metacarpophalangeal joint dislocation. 10. Open treatment, sesamoid fracture avulsion type. TOURNIQUET TIME: 42 minutes. ESTIMATED BLOOD LOSS: 20 mL. all these structures listed above. DESCRIPTION OF PROCEDURE: After successful general endotracheal anesthesia, the limb was prepped and draped. We have a total tourniquet time of 42 minutes and blood loss 32 mL. We then did time-out appropriately, injected the area with 20 mL of 0.5% Marcaine metacarpophalangeal joint and proximal aspect of wound level. We allowed 2 to 3 minutes and exsanguinated the limb, inflated the tourniquet to 250 mmHg pressure. We extended the ulnar-sided incision 1 cm distal on the radial side incision, 2 cm proximal to expose the entire metacarpophalangeal joint. 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 We then , debrided the area of any denuded tissue, debrided the joint and then material associated with open fracture using the following techniques; A excisional technique, B depth was including the joint to bone and bone to joint, C instrumentations were Clark'S [place] blade, tenotomy scissors, Adson's, 5 L Pulsavac irrigation, curette, and a freer. There were no complications. Once we finished the wide debridement to include skin, some muscle from the abductor pollicis musculotendinous junction and muscular belly, then we finished irrigation with 5 L of Pulsavac pressure. We then performed a digital nerve neuroplasty and found there was a small amount of contusion over the radial and digital nerve, but there was no evidence of laceration tear or avulsion. This was true with the neuroplasty under magnification of ulnar nerve as well. The ulnar collateral ligament was intact. We then finished the irrigation, finished the digital nerve neuroplasty, and all debridements to include material associated with open fracture was done now. We began with deep repair, first repairing the volar plate in appropriate 30 degrees of flexion with interrupted 3-0 Prolene, dyed, [id number] pattern. This was repeated until we had placed 4 or 5 stitches in the volar plate and it was now simple to stabilize the joint. We then visualized the radial collateral ligament, repaired with 4-0 Prolene [id number] pattern and at this point, the joint was congruent and we let the C-arm go after we took pictures showing this. The debridement with a curette also included the sesamoids, which were not displaced and there was slightly avulsion fracture, so the fragments were removed with debridement. At this point, we had finished visualized digital nerves, finished debridement of all type, and the C-arm showed excellent joint congruity. We then finished the abductor pollicis brevis repair using Ethibond #2, we finished open treatment of metacarpophalangeal dislocation when we did the reduction and held it by repairing the volar plate without pinning. Final open treatment of sesamoid fracture to include debridement as well as placing an adequate position for success. We deflated the tourniquet. We then closed the wound edges with interrupted 4-0 nylon in a simple pattern and once this was complete, we then had excellent 1 second capillary refill in pink digits. The patient was placed in a short-arm splint and left the operating room with anatomic position was seen clinically and radiographically, and no evidence of operative or anesthetic complication. Job ID: [id number]
[2020-04-20] MEDS ORDERED: Vancomycin HCl 1 GM in Sodium Chloride 0.9% 250 ML 250 ML IVPB SCH (09:00)
[2020-04-20] MEDS ORDERED: Vancomycin 1.5 GRAM/300 ML BAG 1.5 GM in Premix Bag 1 BAG IVPB SCH (12:00)
[2020-04-20 13:14] LABS: SARS-CoV-2 MS2 Positive; SARS-CoV-2 N Gene Negative; SARS-CoV-2 S Gene Negative; SARS-CoV-2 by NAA Not Detected (NotDetected); SARS-CoV-2 orf1ab Negative
[2020-04-20 15:32] VITALS: BP 152/67; TEMP 96.2
== END 2020-04-20 17:15 | disposition home or self-care (01) | DRG 513 ==
LOC: ERS 14:14 → SDC/OP 16:13 → 2NO 23:24
PROVIDERS: ADMIT Orthopaedic Surgery Hand Surgery; ATTEND Orthopaedic Surgery Hand Surgery
PROC: 0RBV0ZZ Excision of Left Metacarpophalangeal Joint, Open Approach (ICD-10-PCS; principal; 2020-04-19)
PROC: 01Q40ZZ Repair Ulnar Nerve, Open Approach (ICD-10-PCS; 2020-04-19)
PROC: 0LQ80ZZ Repair Left Hand Tendon, Open Approach (ICD-10-PCS; 2020-04-19)
PROC: 0RSV0ZZ Reposition Left Metacarpophalangeal Joint, Open Approach (ICD-10-PCS; 2020-04-19)
DX: S63.115A Dislocation of metacarpophalangeal joint of left thumb, initial encounter (principal); S62.102B Fracture of unspecified carpal bone, left wrist, initial encounter for open fracture; S64.32XA Injury of digital nerve of left thumb, initial encounter; S66.212A Strain of extensor muscle, fascia and tendon of left thumb at wrist and hand level, initial encounter; E66.9 Obesity, unspecified; F17.210 Nicotine dependence, cigarettes, uncomplicated; I48.91 Unspecified atrial fibrillation; E78.5 Hyperlipidemia, unspecified; E78.00 Pure hypercholesterolemia, unspecified; E78.1 Pure hyperglyceridemia; X58.XXXA Exposure to other specified factors, initial encounter; Z79.82 Long term (current) use of aspirin; Z79.899 Other long term (current) drug therapy; Z68.35 Body mass index [BMI] 35.0-35.9, adult; Z11.59 Encounter for screening for other viral diseases
CPT/HCPCS: 36415; 76000; 86850; 86900; 86901; 87635; 93005; 96365; 96375; 96376; G0390; J0690; J0702; J1100; J1580; J2270; J2405; J2704; J3010; J3370; J3490; S0020; U0003